=== PATIENT | female | born 1990 | race Caucasian/White ===

== ENCOUNTER → 2023-11-02 06:51 | Outpatient (REF) | payer OTHER, SELFPAY | LOC: PNTC 06:51 | PROVIDERS: ATTENDING PHYSICIAN Obstetrics & Gynecology | DX: Z36.82 Encounter for antenatal screening for nuchal translucency (principal) | CPT/HCPCS: 76801; 76813 ==

== ENCOUNTER → 2023-12-23 06:56 | Outpatient (REF) | payer OTHER, SELFPAY | LOC: PNTC 06:56 | PROVIDERS: ATTENDING PHYSICIAN Obstetrics & Gynecology | DX: O09.529 Supervision of elderly multigravida, unspecified trimester (principal) | CPT/HCPCS: 76805 ==

== ENCOUNTER → 2024-02-16 07:58 | Outpatient (REF) | payer OTHER, SELFPAY | LOC: PNTC 07:58 | PROVIDERS: ATTENDING PHYSICIAN Obstetrics & Gynecology | DX: Z32.01 Encounter for pregnancy test, result positive (principal); Z29.13 Encounter for prophylactic Rho(D) immune globulin; O36.0191 Maternal care for anti-D [Rh] antibodies, unspecified trimester, fetus 1 | CPT/HCPCS: 36415; 86850; 86900; 86901; J2790 ==

== ENCOUNTER 2024-04-13 09:23 | Inpatient (IN) | payer OTHER, SELFPAY ==
[2024-04-13 09:29] VITALS: BP 132/81; BMI 27.1
[2024-04-13 10:16] LABS: % Basophils 0.3 % (0-2); % Eosinophils 0.9 % (0-6); % Immature Granulocytes 0.8 % (0-0.5); % Lymphocytes 19.1 % (20.5-51.1); % Monocytes 5.8 % (1.7-9.3); % Neutrophils 73.1 % (42.2-75.2); Absolute Eosinophils 0.1 10^3/uL (0-0.7); Absolute Immature Granulocytes 0.1 10^3/uL (0-0.05); Absolute Lymphocytes 2.3 10^3/uL (1.2-3.4); Absolute Monocytes 0.7 10^3/uL (0.1-0.6); Absolute Neutrophils 8.7 10^3/uL (1.4-6.5); Hematocrit 31.6 % (37.0-47.0); Hemoglobin 11.6 g/dL (12.0-16.0); Mean Corp Hgb Conc. 36.7 g/dL (33.0-37.0); Mean Corpuscular Hgb 32.2 pg (27.0-31.0); Mean Corpuscular Volume 87.8 fL (81.0-99.0); Nucleated Red Blood Cells % 0 %; Platelet Count 239 10^3/uL (130-400); Red Cell Dist. Width 12.4 % (11.5-14.5); White Blood Cell Count 11.9 10^3/uL (4.8-10.8)
[2024-04-13] MEDS: LR 1000 IV (11:10)
[2024-04-13] MEDS: PENICILLIN 110 UNITS IV (11:10)
[2024-04-13] MEDS: TUMS CHEWABLE TABLET 400 MG PO (12:40)
[2024-04-13] MEDS: PITOCIN 30 UNITS/NSS 500 ML IV ×2 (14:06→22:38)
[2024-04-13] MEDS: PENICILLIN 55 UNITS IV ×2 (15:14→19:26)
[2024-04-13] MEDS: FENTANYL/BUPIVACAINE 100 EPIDURAL (16:56)
[2024-04-13] MEDS: SUBLIMAZE 100 MCG EPIDURAL (16:56)
[2024-04-13] MEDS: TYLENOL 650 MG PO (23:50)
[2024-04-14] MEDS: MOTRIN 600 MG PO ×4 (01:44→21:07)
[2024-04-14 06:27] LABS: Hematocrit 32.5 % (37.0-47.0); Hemoglobin 11.6 g/dL (12.0-16.0)
[2024-04-14] MEDS: TYLENOL 650 MG PO ×2 (08:39→15:04)
[2024-04-14] MEDS: PRENATAL PLUS 1 TABLET PO (08:39)
[2024-04-14] MEDS: SENOKOT-S 1 TABLET PO (08:39)
[2024-04-14 11:52] LABS: Syphilis/T. pallidum Ab Reflex Negative (Negative)
[2024-04-15] MEDS: MOTRIN 600 MG PO ×3 (04:52→17:03)
[2024-04-15] MEDS: SENOKOT-S 1 TABLET PO (09:17)
[2024-04-15] MEDS: PRENATAL PLUS 1 TABLET PO (09:17)
== END 2024-04-15 19:20 | disposition home or self-care (01) | DRG 807 ==
LOC: LDRP 09:23
PROVIDERS: ADMITTING PHYSICIAN Student in an Organized Health Care Education/Training Program
PROC: 10E0XZZ Delivery of Products of Conception, External Approach (ICD-10-PCS; 2024-04-13)
PROC: 0KQM0ZZ Repair Perineum Muscle, Open Approach (ICD-10-PCS; 2024-04-13)
DX: O60.13X0 Preterm labor second trimester with preterm delivery third trimester, not applicable or unspecified (principal); Z37.0 Single live birth; O70.1 Second degree perineal laceration during delivery; Z3A.36 36 weeks gestation of pregnancy
CPT/HCPCS: 88307; 85014; 85018; 85025; 86780; 86850; 86870; 86900; 86901; 87070

== ENCOUNTER 2024-06-01 16:56 | Emergency (ER) | payer OTHER, SELFPAY ==
[2024-06-01] VITALS (7 sets, daily range): BP systolic 140–187; BP diastolic 89–130; BMI 24.5
[2024-06-01 17:39] LABS: % Basophils 0.6 % (0-2); % Eosinophils 2.4 % (0-6); % Immature Granulocytes 0.2 % (0-0.5); % Lymphocytes 48.6 % (20.5-51.1); % Monocytes 5.5 % (1.7-9.3); % Neutrophils 42.7 % (42.2-75.2); Absolute Basophils 0.1 10^3/uL (0-0.2); Absolute Eosinophils 0.2 10^3/uL (0-0.7); Absolute Lymphocytes 4.6 10^3/uL (1.2-3.4); Absolute Monocytes 0.5 10^3/uL (0.1-0.6); Hemoglobin 13.1 g/dL (12.0-16.0); Mean Corp Hgb Conc. 35.4 g/dL (33.0-37.0); Mean Corpuscular Hgb 30.4 pg (27.0-31.0); Mean Corpuscular Volume 85.8 fL (81.0-99.0); Mean Platelet Volume 9.2 fL (7.4-10.4); Nucleated Red Blood Cells % 0 %; Platelet Count 284 10^3/uL (130-400); Red Blood Cell Count 4.31 10^6/uL (4.20-5.40); Red Cell Dist. Width 11.2 % (11.5-14.5); White Blood Cell Count 9.5 10^3/uL (4.8-10.8)
[2024-06-01 18:22] LABS: ALT (SGPT) 39 U/L (0-35); AST (SGOT) 33 U/L (14-36); Albumin 4.8 g/dl (3.5-5.0); Alkaline Phosphatase 89 U/L (38-126); Blood Urea Nitrogen 17 mg/dl (7-17); Calcium 9.7 mg/dl (8.4-10.2); Carbon Dioxide 24 mmol/L (22-30); Chloride 104 mmol/L (98-107); Estimated Creatinine Clearance 84 ml/min; Glucose 113 mg/dl (70-99); Potassium 3.7 mmol/L (3.5-5.1); Sodium 140 mmol/L (135-145); Total Bilirubin 0.4 mg/dl (0.2-1.3); Total Protein 7.6 g/dl (6.3-8.2); eGFR > 60.00
[2024-06-01 18:38] LABS: Urine Albumin Negative (Neg - Trace); Urine Bilirubin Negative (Negative); Urine Character Clear (Clear); Urine Color Straw; Urine Glucose Negative (Negative); Urine Ketone Negative (Negative); Urine Leukocyte Negative (Negative); Urine Nitrite Negative (Negative); Urine Occult Blood Negative (Negative); Urine Specific Gravity 1.005 (<1.030); Urine Urobilinogen Negative (Neg - 1+)
--- NOTE | 2024-06-01 19:12 | ED.GENMED ---
History of Present Illness
General
Chief Complaint: Abdominal Pain
Source: patient
Time Seen by Provider: 06/01/24 17:45
History of Present Illness
History of Present Illness:
33-year-old female with no significant past medical history, 7 weeks from a spontaneous vaginal delivery at 36 weeks and 3 days, presenting to the emergency department for evaluation of a few symptoms including some abdominal cramping
(now resolved), light vaginal bleeding, elevated blood pressures at home over the last few hours. Patient states she contacted her [facility] office but did not hear back from them to reach out to her family provider who recommended patient come to the
ER for further evaluation. Patient had a 6-week checkup at [facility] without any complications. She denies any fevers, chills, rigors. She also notes that she has had a waxing and waning urticarial type rash on her chest, back and facial area that
does seem to wax and wane randomly. No other concerns at this time
Past History
Past History
ED Past Medical History: None
ED Past Surgical History: None
Social History
Tobacco: Non-smoker
Alcohol: None
Drug: None
Personal:
Living: with family
Employment: Employed
Review of Systems
Review of Systems
All Other Systems: ROS reviewed and negative except as documented in HPI and ROS
Phy Exam
Physical Exam
Physical Exam:
GENERAL: Alert , in no apparent distress
EYE: clear conjunctiva b/l
HEAD: NCAT
ENT: mmm.
CARDIAC: Regular rate and rhythm .
LUNGS: Clear breath sounds bilaterally, no acute respiratory distress, no wheezes/rales/rhonchi
ABDOMEN: Soft, without focal tenderness, no r/g, no cvat, negative Morales sign
NEUROLOGICAL: Alert and oriented
SKIN: Warm and dry, skin intact. erythematous, coalescing hive like rash to upper back, blanches, non-tender. No petechiae
MUSCULOSKELETAL: No edema, well perfused.
PSYCH: Normal and appropriate interaction.
Scores
Heart Failure Risk
Heart Failure Risk Score: Not Applicable
Heart Score for Chest Pain Patients
STEMI patient?: Not applicable
Withdrawal Assessment of Alcohol
Withdrawal Assessment Completed?: Not applicable
Course
Orders/Labs/Results
Orders:
Orders
06/01/24 17:19
Type+Screen Urgent
CBC/With Diff [Complete Blood Count/With Diff] Urgent
CMP [Comprehensive Metabolic Panel] Urgent
06/01/24 18:32
Urinalysis Reflex To Culture Urgent
Date Specimen was Collected: 06/01/24
Time Specimen was Collected: 17:55
Abnormal Lab Results
06/01/24
17:19
RDW 11.2 L %
(11.5-14.5)
Absolute Lymphs (auto) 4.6 H 10^3/uL
(1.2-3.4)
Glucose 113 H mg/dl
(70-99)
ALT 39 H U/L
(0-35)
Antibody Screen Positive A
(Negative)
06/01/24 17:19
06/01/24 17:19
Vital Signs
Initial and Last Documented VS:
Initial Vital Signs
Temp Pulse Resp BP Pulse Ox
98.1 F 108 18 187/130 99
06/01/24 16:58 06/01/24 16:58 06/01/24 16:58 06/01/24 16:58 06/01/24 16:58
Last Documented Vital Signs
Temp Pulse Resp BP Pulse Ox
98.1 F 95 18 145/96 96
06/01/24 16:58 06/01/24 19:15 06/01/24 19:15 06/01/24 19:00 06/01/24 19:15
MDM/Problems Addressed
Differential Diagnosis Includes:
Preeclampsia, anemia, hypertension, transiently elevated blood pressures, endometritis
MDM/Problems Addressed:
33-year-old female presenting to the ER for evaluation of multitude of symptoms centered around some abdominal discomfort, vaginal bleeding, rash and elevated blood pressures. Given recent delivery preeclampsia highest on differential however given
she is at 7 weeks makes this a little less likely. No infectious symptoms presently. She is otherwise hemodynamically stable and in no acute distress. Multiple blood pressures done since being in the ER and she does have elevated
pressures around a systolic of 140 and diastolic of 90. Will check labs and urine. Will discuss with [facility].
*Pulse Oximetry
Patient hypoxic: no
*Critical Care Note
Total Time (30-74mins, 75-104mins- exclusive of procedures): Not Applicable
Data Reviewed
Review of Other/Old Records Reveals: Records
Patient Management
Discussion with other providers: Loom Inspector
Escalation/DeEscalation of care consider admission/obs:
Case discussed with on-call [facility] [employer], Dr. Ward, who agrees that given patient is 7 weeks combined with the fact she has no proteinuria and reassuring labs that there is no concern for preeclampsia and the patient should follow-up with
her primary care provider for blood pressure monitoring. Answered all patient's questions and reassured her that she is safe and stable to be discharged home. Aware of return precautions to the ER.
ED Attending Note
-
Portions of this chart may have been created with voice recognition software.� Occasional wrong word or��sound alike� substitutions may have occurred due to the inherent limitations of voice recognition software.
Discharge Plan
Departure
Patient Disposition: Home (Routine Discharge)
Date of Disposition: 06/01/24
Time of Disposition: 19:12
Patient with high blood pressure during this ER visit?: Yes
Discharge Problem:
Elevated blood pressure reading
Instructions: High Blood Pressure ED
Prescriptions:
No Action
prenat.vits,jorge,iov-oqrc-ensjb Tablet
1 tab PO DAILY
acetaminophen 325 mg Tablet
650 mg PO Q4HPRN PRN (Reason: mild pain) Qty: 0 0RF
sennosides-docusate sodium 8.6-50 mg Tablet
1 tab PO DAILYPRN PRN (Reason: constipation) Qty: 0 0RF
ibuprofen 600 mg Tablet
600 mg PO Q6HPRN PRN (Reason: moderate pain/cramps) Qty: 45 0RF
Interventions
Interventions:
*Risk Screen - Suicide Last Done: 06/01/24 16:58
*General Assessment Last Done: 06/01/24 16:58
*Neglect/Abuse Screening Last Done: 06/01/24 16:58
ED- Fall Risk Assessment Last Done: 06/01/24 17:12
*ED COVID-19 Vaccine History Last Done: 06/01/24 17:12
*Nursing Disposition Last Done: 06/01/24 19:23
[facility]-Luaeq[facility]-Urfdrevfmy Assessment Last Done: 06/01/24 18:09
Discharge Date and Time
Print Language: GREENLANDIC
== END 2024-06-01 19:37 | disposition home or self-care (01) ==
LOC: EMR 16:56
PROVIDERS: Emergency Medicine; Physician Assistant Medical; EMERGENCY PHYSICIAN Emergency Medicine
DX: R03.0 Elevated blood-pressure reading, without diagnosis of hypertension (principal)
CPT/HCPCS: 99283; 80053; 81003; 85025; 86850; 86870; 86900; 86901

== ENCOUNTER → 2024-09-13 13:00 | Outpatient (REF) | payer OTHER, SELFPAY | LOC: HWRAD 13:00 | PROVIDERS: ATTENDING PHYSICIAN Obstetrics & Gynecology; FAMILY PHYSICIAN Physician Assistant | DX: N92.6 Irregular menstruation, unspecified (principal) | CPT/HCPCS: 76830; 76856 ==

== ENCOUNTER → 2024-09-14 07:25 | Outpatient (REF) | payer OTHER, SELFPAY | LOC: HWRAD 07:25 | PROVIDERS: ATTENDING PHYSICIAN Physician Assistant | DX: R74.8 Abnormal levels of other serum enzymes (principal); E03.9 Hypothyroidism, unspecified | CPT/HCPCS: 76536; 76700 ==